=== PATIENT | female | born 1995 | race Caucasian/White ===

== ENCOUNTER 2024-09-05 16:50 | Inpatient (IN) | payer OTHER ==
[2024-09-05] MEDS ORDERED: BENZOCAINE/MENTHOL SPRAY 1 GM/SPRAY AEROSOL TOPICAL PRN (18:18)
[2024-09-05] MEDS ORDERED: HYDROCORTISONE 2.5% RECTAL CREAM 30 GM TUBE RECTAL PRN (18:18)
[2024-09-05] MEDS ORDERED: diphenhydrAMINE 50 MG/ML 1 ML VIAL IVP PRN ×2 (18:18)
[2024-09-05] MEDS ORDERED: ZOLPIDEM 5 MG TAB PO PRN (18:18)
[2024-09-05] MEDS ORDERED: LANOLIN CREAM 1 GM TUBE TOPICAL PRN (18:18)
[2024-09-05] MEDS ORDERED: diphenhydrAMINE 25 MG CAP PO PRN (18:18)
[2024-09-05] MEDS ORDERED: diphenhydrAMINE 50 MG CAP PO PRN (18:18)
[2024-09-05] MEDS ORDERED: SIMETHICONE 80 MG CHEWABLE PO PRN (18:18)
[2024-09-05] MEDS: IBUPROFEN 800 MG TAB PO SCH (18:30)
--- NOTE | 2024-09-05 19:06 | P.HPOB ---
History of Present Illness H&P Date: 09/05/24 Chief Complaint: Delivery in EMS Ms. Hicks is a 28 year old at 36 weeks and 4 days with JEOVANY of 09/30/2024 who presented to the ER shortly after delivery a viable male infant and placenta in the ambulance en route to the hospital. She began having regular contractions at 0300 this morning and her water broke revealing clear amniotic fluid at 1616. She then delivered the at 1646. Agpars were noted to be 8 and 10 at one and five minutes respectively. The weight 5 pounds and 2 ounces (2335 grams). The patient did have regular care with an OBGYN in [facility]. The patient denies any obstetric concerns or complications during the . Obstetric history: 1 FTVD at 38 weeks Past Medical history: Asthma (albuterol inhaler use less than weekly) Medications: PNVs Social History:negative Allergies: NKDA Surgeries: None Past Medical History Past Medical History: No Reported History History of Any Multi-Drug Resistant Organisms: None Reported Past Surgical History: No Surgical Hx Reported Past Anesthesia/Blood Transfusion Reactions: No Reported Reaction Past Psychological History: No Psychological Hx Reported Smoking Status: Never smoker Past Drug Use History: None Reported Medications and Allergies Home Medications Medication Instructions Recorded Confirmed Type Fluticasone Propion/Salmeterol 2 09/05/24 History [Advair Hfa 230-21 Mcg Inhaler] Vit No.179/Iron/Folic 1 tab PO DAILY 09/05/24 09/05/24 History [ Tablet] RX: Loratadine 1 tab PO DAILY 09/05/24 09/05/24 History Allergies Allergy/AdvReac Type Severity Reaction Status Date / Time No Known Allergies Allergy Verified 09/05/24 17:58 Exam Vital Signs Pulse Resp BP Pulse Ox 09/05/24 18:54 75 16 111/57 09/05/24 18:32 88 16 113/65 09/05/24 18:17 74 16 114/69 09/05/24 18:02 81 16 117/68 09/05/24 17:48 76 16 115/61 09/05/24 17:33 87 16 119/58 09/05/24 17:18 85 16 105/60 100 09/05/24 17:03 87 16 119/56 100 Intake and Output 09/05/24 09/05/24 09/05/24 06:59 14:59 22:59 Output Total 50 Balance -50 Output: Output, Quantitative 50 Blood Loss Other: Weight 61.689 kg Focused physical exam is performed. Vital signs are stable. The paitent is pleasant and conversational. Breathing is non-labored. Abdomen is soft, non- tender. Uterine fundus is firm and well below the umbilicus. Appropriate bleeding is noted from the vaginal, small trickles with fundal massage. Vaginal, vulvar, and perineal inspection are performed and a second degree perineal laceration is noted. Extremities are non-tender and non-edematous. Assessment and Plan Assessment: 28 year old now presents by ambulance after delivery an infant and the placenta en route Plan: Admit, regular diet, labwork, activity as tolerated. Anticipate discharge home tomorrow after 24 hours.
--- NOTE | 2024-09-05 19:09 | P.PCN ---
Date of Procedure: 09/05/24 Preoperative Diagnosis: Second degree perineal laceration Postoperative Diagnosis: Same Procedure(s) Performed: Second degree perineal laceration repair Implants: None Anesthesia: local Surgeon: Zayra Dotson Estimated Blood Loss (ml): 25 IV fluids (ml): 0 Urine output (ml): 0 Pathology: none sent Condition: stable Disposition: floor Indications for Procedure: 28 year old who recently delivered a male in the ambulance en route to the hospital. She was noted to have a second degree laceration on exam. Operative Findings: Second degree laceration noted. Description of Procedure: The perineum was infiltrated with lidocaine. 2-0 Vicryl was used to repair the second degree in the usual fashion. Good hemostasis was noted after the repair. All sponge and instrument counts were correct x2.
[2024-09-05 20:36] LABS: Basophils % (A) 0 %; Eosinophils # (A) 0.1 k/uL (0-0.7); Eosinophils % (A) 1 %; HCT 39.3 % (34.0-46.0); HGB 12.9 gm/dL (11.4-16.0); Lymphocytes # (A) 1.3 k/uL (1.0-4.8); Lymphocytes % (A) 9 %; MCH 28.6 pg (25.0-35.0); MCHC 32.7 g/dL (31.0-37.0); MCV 87.3 fL (80.0-100.0); Mean Platelet Volume 7.2; Monocytes # (A) 0.7 k/uL (0-1.0); Monocytes % (A) 5 %; Neutrophils # (A) 11.6 k/uL (1.3-7.7); Neutrophils % (A) 83 %; Platelet Count 274 k/uL (150-450); RBC 4.51 m/uL (3.80-5.40); RDW 12.8 % (11.5-15.5); WBC 13.9 k/uL (3.8-10.6)
[2024-09-05] MEDS: LORATADINE 10 MG TAB PO SCH (20:44)
[2024-09-05] MEDS: SENNOSIDES-DOCUSATE SODIUM 1 EACH TAB PO SCH (20:44)
[2024-09-05 21:20] LABS: Appearance,Urine Clear (Clear); Bilirubin,Urine Negative (Negative); Blood,Urine Large (Negative); Color,Urine Colorless; Glucose,Urine (UA) Negative (Negative); Ketones,Urine 2+ (Negative); Leukocyte Esterase,Urine Trace (Negative); Mucus,Urine Rare /hpf; Nitrite,Urine Negative (Negative); PH, Urine 6.5 (5.0-8.0); Protein,Urine Negative (Negative); RBC,Urine >182 /hpf (0-5); Specific Gravity,Urine 1.009 (1.001-1.035); Urobilinogen,Urine <2.0 mg/dL (<2.0); WBC,Urine 6 /hpf (0-5)
[2024-09-05 21:32] LABS: Amphetamine Screen,Urine Not Detected (NotDetected); Barbiturate Screen,Urine Not Detected (NotDetected); Benzodiazepines Screen,Urine Not Detected (NotDetected); Cocaine Screen,Urine Not Detected (NotDetected); Methadone Screen, Urine Not Detected (NotDetected); Opiate Screen,Urine Detected (NotDetected); Oxycodone Screen, Urine Not Detected (NotDetected); Phencyclidine Screen,Urine Not Detected (NotDetected); Tricyclic Antidepressant,Urine Not Detected (NotDetected); Urn Cannabinoid Scrn Detected (NotDetected)
[2024-09-05] MEDS: ACETAMINOPHEN TAB 500 MG TAB PO SCH (23:15)
[2024-09-06 04:14] LABS: HIV 2 AB Non-Reactive (Non-Reactive); HIV AB P24 Non-Reactive (Non-Reactive); HIV P24 AG Non-Reactive (Non-Reactive)
[2024-09-06 06:03] LABS: Basophils % (A) 0 %; Eosinophils # (A) 0.2 k/uL (0-0.7); Eosinophils % (A) 2 %; HCT 34.6 % (34.0-46.0); HGB 11.7 gm/dL (11.4-16.0); Lymphocytes % (A) 23 %; MCH 29.4 pg (25.0-35.0); MCV 86.6 fL (80.0-100.0); Mean Platelet Volume 7.8; Monocytes # (A) 0.6 k/uL (0-1.0); Monocytes % (A) 7 %; Neutrophils # (A) 5.9 k/uL (1.3-7.7); Neutrophils % (A) 66 %; Platelet Count 229 k/uL (150-450); RBC 3.99 m/uL (3.80-5.40); RDW 13.4 % (11.5-15.5)
--- NOTE | 2024-09-06 07:01 | P.PNOBGVD ---
Subjective - Subjective Principal diagnosis: s/p vaginal delivery Interval history: The patient is doing well this morning and had no acute events overnight. She has no complaints this morning. She reports minimal lochia, passing flatus, voiding without difficulty, ambulating, and eating/drinking without nausea or vomiting. She is her without difficulty. She denies chest pain, shortness of breathing, fevers, or chills overnight. She denies pain or swelling in the legs. Patient reports: Reports appetite normal, Reports voiding normally, Reports pain well controlled, Reports ambulating normally : doing well, other (in nursery on oxygen) Objective - Latest Vital Signs Latest vital signs: Vital Signs Temp Pulse Resp BP Pulse Ox 09/06/24 04:00 98.1 F 82 16 112/65 98 09/06/24 00:00 98.0 F 74 16 100/63 97 09/05/24 18:54 75 16 111/57 09/05/24 18:32 88 16 113/65 09/05/24 18:17 74 16 114/69 09/05/24 18:02 81 16 117/68 09/05/24 17:48 76 16 115/61 09/05/24 17:33 87 16 119/58 09/05/24 17:18 85 16 105/60 100 09/05/24 17:03 87 16 119/56 100 Intake and Output 09/05/24 09/05/24 09/06/24 14:59 22:59 06:59 Output Total 50 Balance -50 Output: Output, Quantitative 50 Blood Loss Other: # Voids 2 Weight 61.689 kg - Exam Extremities: Present: normal Abdomen: Present: normal appearance, soft Uterus: Present: normal, firm - Labs Labs: Abnormal Lab Results - Last 24 Hours (Table) 09/05/24 09/05/24 09/05/24 Range/Units 20:20 20:20 20:58 WBC 13.9 H (3.8-10.6) k/uL Neutrophils # 11.6 H (1.3-7.7) k/uL Glucose 107 H (74-99) mg/dL Urine Ketones 2+ H (Negative) Urine Blood Large H (Negative) Ur Leukocyte Esterase Trace H (Negative) Urine RBC >182 H (0-5) /hpf Urine WBC 6 H (0-5) /hpf Urine Mucus Rare H (None) /hpf Urine Opiates Screen Detected H (NotDetected) U Marijuana (THC) Screen Detected H (NotDetected) Assessment and Plan Assessment: 28 year old now PPD#1 s/p Plan: 1. . Meeting all milestones appropriately. 2. Viable male infant. In the nursery on oxygen. Will need circumcision once cleared by peds. Dispo: Anticipate discharge home tomorrow.
[2024-09-06 09:16] VITALS: RESP 14
[2024-09-06 12:32] LABS: N. gonorrhoeae,PCR Negative (Negative)
[2024-09-06 12:33] LABS: C. trachomatis,PCR Negative (Negative)
[2024-09-06 14:52] VITALS: BP 99/63; PULSE 69; TEMP 98.1
== END 2024-09-06 17:14 | disposition home or self-care (01) | DRG 560 ==
LOC: 4FBP 16:50
PROVIDERS: ADMIT Obstetrics & Gynecology; ATTEND Obstetrics & Gynecology
PROC: 10E0XZZ Delivery of Products of Conception, External Approach (ICD-10-PCS; principal; 2024-09-05)
PROC: 0KQM0ZZ Repair Perineum Muscle, Open Approach (ICD-10-PCS; 2024-09-05)
DX: O60.14X0 Preterm labor third trimester with preterm delivery third trimester, not applicable or unspecified (principal); Z37.0 Single live birth; O70.1 Second degree perineal laceration during delivery; Z3A.36 36 weeks gestation of pregnancy
CPT/HCPCS: 80306; 81001; 82947; 85025; 86762; 86780; 86850; 86900; 86901; 87340; 87390; 87491; 87591